=== PATIENT | male | born 1985 | race African-American/Black ===

== ENCOUNTER 2016-12-22 20:48 | Emergency (ER) | payer SELFPAY ==
[2016-12-22 21:09] VITALS: BP 143/69; PULSE 86; TEMP 99.5; BMI 25.8
[2016-12-22] MEDS ORDERED: morphine CARPU-JECT 4 MG/1 ML DISP.SYRIN IVPUSH ONE (21:47)
[2016-12-22] MEDS ORDERED: morphine CARPU-JECT 2 MG/1 ML DISP.SYRIN IM ONE (21:57)
[2016-12-22] MEDS ORDERED: morphine CARPU-JECT 2 MG/1 ML DISP.SYRIN ONE (22:06)
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
[2016-12-22] MEDS ORDERED: AMPICILLIN NA/SULBACTAM NA 3 GM VIAL IM ONE (22:35)
[2016-12-22] MEDS ORDERED: AMPICILLIN NA/SULBACTAM NA 3 GM in SODIUM CHLORIDE 100 ML IVPB ONE (22:49)
[2016-12-22] MEDS ORDERED: AMOX TR/POT CLAV 500MG/125MG TABLETS (FP) PO ONE (23:14)
== END 2016-12-23 00:45 | disposition home or self-care (01) ==
LOC: JER 20:48
PROC: 3E023NZ Introduction of Analgesics, Hypnotics, Sedatives into Muscle, Percutaneous Approach (ICD-10-PCS; principal; 2016-12-22)
DX: L03.115 Cellulitis of right lower limb (principal); J45.909 Unspecified asthma, uncomplicated; F39 Unspecified mood [affective] disorder; T14.8 Other injury of unspecified body region
CPT/HCPCS: 93971-TC; 99281-25